=== PATIENT | male | born 1960 | race Caucasian/White ===

== ENCOUNTER 2016-12-08 13:39 | Outpatient (CLI) | payer OTHER ==
--- NOTE | 2016-12-09 07:01 | Diagnostic Imaging Report ---
NEEL LOMBARDO~ [address] [address] ~ ~ ~ ~ Report Submission Date: Dec 08, 2016 1:59:35 PM CDT Patient ~ Study Name: KEYONNA AYALA ~ Date: Dec 08, 2016 1:41:57 PM CDT ~ Modality Type: CR Gender: M ~ Description: LOWER EXTREMITY : 64 ~ Institution: Physician: NEEL LOMBARDO ~ ~ ~ ~ Examination: Plain film ankle History: Injury Findings: 3 views of the ankle demonstrates normal cortical margins. ~Linear fracture medial malleolus. Talar dome is intact. Joint effusion Impression: Medial malleolar fracture. Joint effusion. ~ Electronically signed on Dec 08, 2016 1:59:35 PM CDT by: Guillermo MARTINEZ
== END 2016-12-08 13:40 ==
LOC: RAD 13:39
PROVIDERS: ATTEND Family Medicine
DX: S82.891A Other fracture of right lower leg, initial encounter for closed fracture (principal); X58.XXXA Exposure to other specified factors, initial encounter; Y93.9 Activity, unspecified; Y99.9 Unspecified external cause status
CPT/HCPCS: 73610

== ENCOUNTER 2016-12-28 23:51 | Outpatient (CLI) | payer OTHER ==
--- NOTE | 2016-12-29 06:48 | Diagnostic Imaging Report ---
ELISHA SPAIN [facility] [address] [facility] [address] [address] Report Submission Date: Dec 29, 2016 12:05:34 AM CDT Patient Study Name: KEYONNA AYALA Date: Dec 28, 2016 11:51:57 PM CDT Modality Type: CR Gender: M Description: LOWER EXTREMITY : 64 Institution: [facility] Physician: ELISHA SPAIN Right ankle - three views Clinical history: Medial malleolus fracture. Findings: Examination right ankle in AP, lateral and oblique views with comparison to examination of 12/08/2016 demonstrates a healing fracture of the medial malleolus. Fracture line is slightly less well defined. Ankle mortise is anatomic. There is no evident joint effusion. Impression: 1. Healing fracture of the medial malleolus. Electronically signed on Dec 29, 2016 12:05:34 AM CDT by: Wally MARTINEZ
== END 2016-12-28 23:52 ==
LOC: RAD 23:51
PROVIDERS: ATTEND Family Medicine
DX: S82.51XD Displaced fracture of medial malleolus of right tibia, subsequent encounter for closed fracture with routine healing (principal); X58.XXXD Exposure to other specified factors, subsequent encounter; Y93.9 Activity, unspecified; Y99.9 Unspecified external cause status
CPT/HCPCS: 73610

== ENCOUNTER 2017-01-18 12:19 | Outpatient (CLI) | payer OTHER ==
--- NOTE | 2017-01-18 15:16 | Diagnostic Imaging Report ---
[facility] [address] [facility].[address] [address] Report Submission Date: Jan 18, 2017 1:23:15 PM CDT Patient Study Name: KEYONNA AYALA Date: Jan 18, 2017 12:23:22 PM CDT Modality Type: CR Gender: M Description: LOWER EXTREMITY : 64 Institution: [facility] Physician ELISHA SPAIN - OP EXAMINATION: Right ankle, three views. HISTORY: Fracture follow-up. FINDINGS: Comparison is made to exam dated 12/28 2016. Nondisplaced medial malleolar fracture is again identified and not significantly changed. No significant callus or periosteal reaction is clearly visualized. IMPRESSION: 1. Nondisplaced medial malleolar fracture again identified, unchanged. Electronically signed on Jan 18, 2017 1:23:15 PM CDT by: Rayo MARTINEZ
== END 2017-01-18 12:20 ==
LOC: RAD 12:19
PROVIDERS: ATTEND Family Medicine
DX: M84.463A Pathological fracture, right fibula, initial encounter for fracture (principal)
CPT/HCPCS: 73610